=== PATIENT | female | born 1980 | race Caucasian/White ===

== ENCOUNTER 2017-04-22 14:44 | Outpatient (CLI) ==
--- NOTE | 2017-04-22 15:37 | CT ---
EXAM: CT left hip without contrast HISTORY: Left hip pain and low back pain. COMPARISON: Radiograph 03/26/2017. TECHNIQUE: Multiple axial images of the left hip were obtained without intravenous contrast. Images were reformatted in the sagittal and coronal planes. FINDINGS: Bone mineralization is normal. There is no fracture or dislocation. The joint spaces are maintained. No focal soft tissue abnormality is seen. There has been previous tubal ligation. IMPRESSION: No acute abnormality of the left hip.
--- NOTE | 2017-04-22 15:38 | CT ---
EXAM: CT cervical spine without intravenous contrast 04/22/2017. Sagittal and coronal reformatted i mages obtained HISTORY: Pain COMPARISON: 09/18/2010 FINDINGS: Straightening of the normal cervical lordosis. Vertebral bodies appear intact without rolando dence of fracture. The facet joints align normally. The prevertebral soft tissues appear within normal limits. Multilevel chronic degenerative disc disease. Multilevel small posterior bulge flattening the thecal sac. This process appears most severe at C5-C 6. The neural foramen appear grossly patent. IMPRESSION: 1. Straightening of the normal cervical lordosis. Anatomic alignment appears stable. 2. No acute osseous abnormality of the cervical spine. 3. Multilevel chronic degenerative disc disease. Multilevel small posterior disc bulge flattening t hecal sac. This appears most severe at C5-C6. 4. If further evaluation of the central canal and neural foramen is clinically indicated then follow -up MRI could be obtained.
--- NOTE | 2017-04-22 15:38 | CT ---
EXAM: CT of the lumbar spine without contrast History: Lower back pain. Technique: Multiplanar CT images through the lumbar spine were obtained without the administration o f IV contrast Findings: Metallic structures are seen within the pelvis probably related to fallopian tube occlusio n devices. 2.1 cm fat containing lesion within the left adnexa most compatible with a small dermoid cyst. No acute fracture or subluxation of the lumbar spine. Prominent Schmorl's nodes are seen. Moderate disc space narrowing within the lower thoracic spine and at L1-L2, L2-L3 and L5-S1 with endplate scle rosis and osteophyte formation. T12-L1: Small posterior disc osteophyte complex with no significant bony central canal stenosis or b irasema neural foraminal narrowing. L1-L2: No significant disc bulge, central canal stenosis or bony neural foraminal narrowing. L2-L3: Small disc bulge effacing the anterior thecal sac with no significant central canal stenosis or bony neural foraminal narrowing. L3-L4: No significant disc bulge or central canal stenosis. Mild bilateral bony neural foraminal na rrowing secondary to ligamentous and facet hypertrophy. L4-L5: No significant disc bulge, central canal stenosis or bony neural foraminal narrowing. L5-S1: No significant disc bulge or central canal stenosis. No significant bony neural foraminal coty rowing. Nonspecific posterior subcutaneous edema. Impression: 1. No acute osseous abnormality of the lumbar spine. 2. Degenerative disc disease as described above. 3. Level by level analysis as detailed above with no significant central canal stenosis or bony neur al foraminal narrowing. 4. Small dermoid cyst within the left adnexa.
== END 2017-04-22 14:45 | disposition home or self-care (01) ==
LOC: RAD 14:44
PROVIDERS: ATTEND Internal Medicine
DX: M54.9 Dorsalgia, unspecified (principal); M54.2 Cervicalgia; M25.552 Pain in left hip